=== PATIENT | female | born 1965 | race Caucasian/White ===

== ENCOUNTER 2016-05-16 00:14 | Emergency (ER) | payer OTHER ==
[~2016-05-16] VITALS: Ht 177.8 cm; Wt 75.0 kg
[2016-05-16 00:25] VITALS: BP 143/73; PULSE 99; RESP 16; TEMP 97.9; O2SAT 100
[2016-05-16] MEDS ORDERED: ESTRGEL (00:25)
[2016-05-16] MEDS ORDERED: ALPR.5 PO (00:25)
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
[2016-05-16 00:45] LABS: AUTOMATED NEUTROPHIL # 7.8 TH/MM3 (1.8-7.7); BASOPHIL # 0.1 TH/MM3 (0-0.2); BASOPHIL % 0.5 % (0.0-2.0); EOSINOPHIL # 0.2 TH/MM3 (0-0.4); EOSINOPHIL % 1.6 % (0.0-4.0); HEMATOCRIT 42.9 % (35.0-46.0); HEMO FLAGS DIFF FINAL; LYMPH % 25.1 % (9.0-44.0); LYMPHOCYTE # 2.9 TH/MM3 (1.0-4.8); MEAN CORPUSCULAR HGB CONC 33.7 % (32.0-36.0); MONO % 5.6 % (0.0-8.0); NEUT % 67.2 % (16.0-70.0); PLATELET COUNT 316 TH/MM3 (150-450); RED BLOOD COUNT 4.81 MIL/MM3 (4.00-5.30); RED CELL DISTRIBUTION WIDTH 12.3 % (11.6-17.2); WHITE BLOOD COUNT 11.6 TH/MM3 (4.0-11.0)
[2016-05-16 00:58] LABS: ALT (GPT) 27 U/L (10-53); ANION GAP 6 MEQ/L (5-15); AST (GOT) 14 U/L (15-37); BICARBONATE 29.8 MEQ/L (21.0-32.0); BLOOD UREA NITROGEN 13 MG/DL (7-18); CHLORIDE 107 MEQ/L (98-107); GLOMERULAR FILTRATION RATE 59 ML/MIN (>89); POTASSIUM 3.8 MEQ/L (3.5-5.1); SODIUM (NA) 143 MEQ/L (136-145)
[2016-05-16 01:00] LABS: ALKALINE PHOSPHATASE 75 U/L (45-117); TOTAL BILIRUBIN ADULT 0.3 MG/DL (0.2-1.0)
[2016-05-16 01:09] LABS: AMPHETAMINE, URINE NEG (NEG); BARBITURATES, URINE NEG (NEG); COCAINE, URINE NEG (NEG)
[2016-05-16 03:00] VITALS: BP 133/84; PULSE 76; RESP 18
[2016-05-16] MEDS ORDERED: NICOTINE 14 MG/24 HR PATCH TD ONE (06:00)
[2016-05-16 06:41] VITALS: BP 139/84; PULSE 87; RESP 18; TEMP 97.5; O2SAT 96
[2016-05-16 07:53] VITALS: BP 139/84; PULSE 87; RESP 18; O2SAT 96
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
== END 2016-05-16 09:55 | disposition home or self-care (01) ==
LOC: NEPJ 00:14
DX: F43.21 Adjustment disorder with depressed mood (principal); F43.10 Post-traumatic stress disorder, unspecified
CPT/HCPCS: 80053; 80307; 80320; 85025; 99284

== ENCOUNTER 2016-09-10 17:29 | Emergency (ER) | payer SELFPAY ==
[~2016-09-10] VITALS: Ht 170.2 cm; Wt 80.0 kg
[~2016-09-10 17:29] MED LIST: ALPR.5 PO; ESTRGEL
[2016-09-10 17:30] VITALS: BP 149/72; PULSE 110; RESP 20; TEMP 98; O2SAT 98
[2016-09-10] MEDS ORDERED: IBUP800T23 PO (18:13)
[2016-09-10] MEDS ORDERED: ROBA500T PO (18:13)
--- NOTE | 2016-09-10 18:14 | PD ---
HPI Chief Complaint: Injury Time Seen by Provider: 18:08 Travel History International Travel<30 days: No Contact w/Intl Traveler<30days: No Traveled to known affect area: No History of Present Illness HPI 51-year-old female presents to the emergency Department with complaint of right elbow pain after getting tangled up in her dog's leash as today and falling over and landed on her right arm. Denies hitting her head or loss of consciousness. Denies neck pain or back pain. Reports pain radiates into her shoulder and down to her wrist. Also reports muscle pain to her right trapezius muscle. Denies paresthesias, loss of sensation to the affected extremity. Reports decreased range of motion at the elbow secondary to pain. Denies fever, vomiting. Denies anticoagulants. Has not taken any medications or tried any treatments to alleviate her symptoms. Pain is aggravated with movement and palpation. Allergies to codeine. Has no other medical complaints. No other modifying factors or associated signs and symptoms. PFSH Past Medical History Anxiety: Yes Depression: Yes Immunizations Current: Yes Social History Alcohol Use: No Tobacco Use: No Substance Use: Yes Allergies-Medications (Allergen,Severity, Reaction): Coded Allergies: Codeine (Verified Allergy, Severe, Fever, 09/10/16) Reported Meds & Prescriptions Reported Meds & Active Scripts Active Robaxin (Methocarbamol) 500 Mg Tab 500 Mg PO QID PRN Ibuprofen 800 Mg Tab 800 Mg PO Q6HR PRN Reported Xanax (Alprazolam) 0.5 Mg Tab 0.5 Mg PO Q8H PRN Estrogel Topical (Estradiol) 0.06% Gel Review of Systems Except as stated in HPI: all other systems reviewed are Neg Physical Exam Narrative GENERAL: Well-nourished, well-developed female patient, in no acute distress SKIN: Warm and dry. HEAD: Atraumatic. Normocephalic. EYES: Pupils equal and round. No scleral icterus. No injection or drainage. ENT: Mucosa pink and moist. Airway patent. NECK: Trachea midline. CARDIOVASCULAR: Regular rate. 3+ radial pulses. RESPIRATORY: No accessory muscle use. GASTROINTESTINAL: Flat. MUSCULOSKELETAL: Right elbow with full range of motion; with mild edema noted to the lateral aspect; without erythema, ecchymosis; with tenderness on palpation; no obvious deformity. Right shoulder with full range of motion and greater than 45 abduction; joint is stable; shoulders equal; no obvious deformity; tenderness on palpation to the right upper trapezius muscle area. Right upper extremity supple and non-tense with 2+ radial pulses and sensory intact and without erythema or edema. [No obvious deformities. No clubbing. No cyanosis. No edema. NEUROLOGICAL: Awake and alert. Oriented 3. No obvious cranial nerve deficits. Motor grossly within normal limits. Normal speech. PSYCHIATRIC: Appropriate mood and affect; insight and judgment normal. Data Data Last Documented VS Vital Signs Date Time Temp Pulse Resp B/P Pulse Ox O2 Delivery O2 Flow Rate FiO2 09/10/16 17:30 98.0 110 20 149/72 98 Room Air Orders Elbow, Complete (4 Vws) (09/10/16 17:59) Ice/Cold Pack (09/10/16 17:59) Ibuprofen (Motrin) (09/10/16 18:15) Sling Cradle Arm (09/10/16 ) Sling Cradle Arm (09/10/16 ) MDM Medical Decision Making Medical Screen Exam Complete: Yes Emergency Medical Condition: Yes Medical Record Reviewed: Yes Differential Diagnosis Elbow fracture, elbow contusion, trapezius muscle strain, fall Narrative Course 51-year-old female with right elbow injury and right trapezius muscle strain after a mechanical fall today. Denies hitting her head or loss of consciousness. Denies neck pain or back pain. I do not suspect joint separation, fracture, dislocation of the right shoulder and feel imaging is unnecessary at this time. Heart rate recheck on physical exam is approximately 90 bpm. Ibuprofen ordered and administered in the ER. Right elbow x-ray ordered. Icepack applied in ER. Right elbow x-ray with no acute findings. Arm sling provided for support. Ibuprofen and Robaxin prescribed for home. Patient verbalizes understanding and agreement with treatment plan. Patient is medically cleared and stable for discharge. Discussed reasons to return to the emergency department. Instructed patient to follow up with primary care provider. Patient agrees with treatment plan. The patients vital signs are stable and the patient is stable for outpatient follow-up and treatment. Patient discharged home, stable and in no acute distress. Diagnosis Primary Impression: Injury of right elbow Qualified Code: S59.901A - Injury of right elbow, initial encounter Additional Impression: Strain of right trapezius muscle Qualified Code: S46.811A - Strain of right trapezius muscle, initial encounter Referrals: Primary Care Physician Patient Instructions: Fall Prevention (ED), General Instructions, Muscle Strain (ED) Departure Forms: Tests/Procedures, Work Release Enter return to work date: September 14, 2016 Additional Instructions: Ibuprofen or Tylenol as directed and as needed for pain and inflammation Rest and immobilize the affected area Apply ice to reduce swelling to affected area Avoid elbow pressure by not leaning or placing your weight on your elbow to rise from a lying or sitting position Follow-up with primary care provider Follow-up with orthopedic as needed Return to the emergency department immediately with worsening of symptoms Med/Other Pt SpecificInfo: Prescription(s) given Scripts Methocarbamol (Robaxin)500 Mg [id number] Mg PO QID PRN (MUSCLE SPASM) #30 TAB Ref 0 Prov:Pat Clark 09/10/16 Ibuprofen 800 Mg [id number] Mg PO Q6HR PRN (PAIN) #30 TAB Ref 0 Prov:Pat Clark 09/10/16 Disposition: 01 DISCHARGE HOME Condition: Stable Pat Clark September 10, 2016 18:14
[2016-09-10] MEDS ORDERED: IBUPROFEN 800 MG TAB PO ONE (18:15)
--- NOTE | 2016-09-10 19:10 | RADRPT ---
EXAM DATE/TIME: 09/10/2016 18:22 [facility] COMPARISON: No previous studies available for comparison. INDICATIONS : Trauma, pain after falling on right elbow MEDICAL HISTORY : None. SURGICAL HISTORY : None. ENCOUNTER: Initial ACUITY: 2 days PAIN SCORE: 7/10 LOCATION: Right elbow FINDINGS: Multiple view examination of the right elbow demonstrates no soft tissue swelling, joint effusion, or fracture. The osseous structures are in normal alignment. Bony mineralization is normal. CONCLUSION: Unremarkable examination of the right elbow. Antione Huff MD on September 10, 2016 at 19:07 Board Certified Radiologist. This report was verified electronically.
== END 2016-09-10 19:12 | disposition home or self-care (01) ==
LOC: NEPK 17:29
DX: S59.901A Unspecified injury of right elbow, initial encounter (principal); S46.811A Strain of other muscles, fascia and tendons at shoulder and upper arm level, right arm, initial encounter; W19.XXXA Unspecified fall, initial encounter
CPT/HCPCS: 73080; 99283